=== PATIENT | female | born 1950 | race Hispanic/Latino ===

== ENCOUNTER → 2018-05-24 | Day surgery (SDC) | payer MEDICARE ==
[2018-05-23 12:49] LABS: BASOPHILS % 0.5 % (0.0-1.0); EOSINOPHILS # (AUTO) 0.2 (0.0-0.4); HEMATOCRIT 38.8 % (34.2-44.1); HEMOGLOBIN 13.3 g/dL (12.0-16.0); LYMPHOCYTES # (AUTO) 2.7 (1.0-3.2); LYMPHOCYTES % 31.7 % (18.0-39.1); MEAN CORPUSCULAR HGB CONC 34.3 g/dL (31-35); MEAN CORPUSCULAR VOLUME 99.2 fL (81-99); MONOCYTES # (AUTO) 0.6 (0.2-0.8); MONOCYTES % 7.4 % (4.4-11.3); NEUTROPHILS # (AUTO) 4.9 (2.1-6.9); PLATELET COUNT 291 x10e3/uL (140-360); RED BLOOD COUNT 3.91 x10e6/uL (3.6-5.1); RED CELL DISTRIBUTION WIDTH 12.4 % (11.7-14.4)
--- NOTE | 2018-05-23 13:58 | Diagnostic Imaging Report ---
EXAMINATION: CHEST 2 VIEWS INDICATION: Right shoulder rotator cuff tear. \S\PRE-OP COMPARISON: None FINDINGS: PA and lateral views TUBES and LINES: None. LUNGS: Lungs are well inflated. Trace left basilar atelectasis. There is no evidence of pneumonia or pulmonary edema. PLEURA: No pleural effusion or pneumothorax. HEART AND MEDIASTINUM: The cardiomediastinal silhouette is unremarkable. BONES AND SOFT TISSUES: No acute osseous lesion. Soft tissues are unremarkable. UPPER ABDOMEN: No free air under the diaphragm. IMPRESSION: No acute thoracic abnormality. Signed by: Dr. Timmy Landers M.D. on 05/23/2018 1:54 PM
[~2018-05-24] MED LIST: ASPIR 8181 MG PO; CARISOPRODOL PO; CEFAZOLIN SOD 2 GM/D5W 50ML 50 ML IV ONE; DEXAMETHASONE SOD PHOS INJ 4 MG/ML VIAL ONE; EPINEPHRINE HCL INJ 1 MG/ML AMP IV ONE; EPINEPHRINE HCL INJ 1 MG/ML AMP ONE; FENTANYL CITRATE/PF 100MCG/2 ML INJ ONE; GABAPENTIN300 MG PO; KETOROLAC TROMETHAMINE 30 MG/ML VIAL ONE; LIDOCAINE 2% /EPINEPHRINE 20 ML SDV INJ ONE; LISINOPRIL PO; LORCET 10-6501 EACH; LOVASTATIN PO; METOPROLOL SUCC50 MG PO; MIDAZOLAM HCL 2 MG/2 ML VIAL ONE; MULTIVITAMIN; ONDANSETRON HCL INJ 2 MG/ML VIAL ONE; PROPOFOL IV EMULSION 10 MG/ML 20 ML VIAL ONE; ROCURONIUM BROMIDE 10 MG/ML 5ML VIAL ONE; ROPIVACAINE 0.5% 5 MG/ML 30 ML SDV ONE; SEVOFLURANE INHAL SOLN 250 ML PEN BTL ONE; TRAMADOL HCL100 MG PEG; VITAMIN B-121000 MCG PO; VITAMIN D PO
[2018-05-24 12:20] VITALS: BP 118/77
--- NOTE | 2018-05-25 16:22 | Operative Report ---
DATE OF PROCEDURE: May 24, 2018 [facility]URN OPERATOR: None. PREOPERATIVE DIAGNOSES 1. Right rotator cuff tear. 2. Right acromioclavicular joint arthrosis. POSTOPERATIVE DIAGNOSES 1. Complex right rotator cuff tear. 2. Right acromioclavicular joint arthrosis. OPERATIONS/PROCEDURES PERFORMED 1. Patient underwent right shoulder examination under anesthesia. 2. Right shoulder arthroscopy. 3. Repair of a complex right rotator cuff tear. 4. Right arthroscopic subacromial decompression and acromioplasty. 5. Right arthroscopic distal clavicle resection. ANESTHESIA: General endotracheal intubation anesthesia as well as regional block. IV FLUIDS: As per the anesthesia record. BRIEF DESCRIPTION OF THE PATIENT'S OPERATIVE PROCEDURE: Ms. Marsh was taken to the operating room, placed in supine position on the operating table. Following induction of general anesthesia, as well as endotracheal intubation, the patient's right upper extremity was examined under anesthesia. She was found to have mild stiffness in the shoulder when compared to the nonoperative side. There was no evidence of instability. The patient's upper extremity was prepped and draped in standard surgical fashion. Standard posterolateral and anterior portals were created without difficulty. Examination of the glenohumeral articulation demonstrated no significant evidence of chondromalacia. The biceps was contained within the shoulder joint. There were no loose bodies in the shoulder joint. There was a full-thickness rotator cuff tear overlying the glenohumeral articulation not at the level of the insertion site for the rotator cuff tissue. The scope was placed into the subacromial space and significant bursal inflammation was encountered. A lateral portal was created through an outside-in technique. A shaver was placed in the subacromial space and a bursectomy was performed. Evaluation of the rotator cuff tissue again confirmed tearing of the rotator cuff tissue at the musculotendinous junction overlying the glenohumeral joint anteriorly along the pathway of the biceps tendon. The remaining rotator cuff tissue was severely atrophic and worn. An anterolateral portal was created through an outside-in technique. The patient was found to have a markedly downward sloping acromion both anteriorly and laterally and she also had significant osteophytes that were impacting the rotator cuff tissue at the level of the tear at the AC joint. A shaver was used to provide the patient an acromioplasty at this time. The osteophytes at the level of the AC joint were also resected at this time to allow for attempted repair of the rotator cuff injury. Sutures were then shuttled through the rotator cuff tendon stump and woven through the muscle medially in an attempt to repair the muscle to the tendon. These sutures were tied firmly with the arm slightly abducted from the side of the body and this resulted in realignment of the tendon and muscular fibers. Again, the rotator cuff tissue was found to be atrophic and severely worn both at the level of the injury as well as laterally over the greater tuberosity. Once the rotator cuff was drawn together, evaluation of the tendon found closure of the rotator cuff defect. The shaver was transferred to the anterior portal and a distal clavicle resection was performed removing 1 cm section of the distal clavicle. This was confirmed using the scope. The shoulder was then drained of its normal saline. All portal sites were closed and the patient was provided a shoulder immobilizer, awakened and taken to the postanesthesia care unit in stable condition. Job#: [id number] VAS
== END | disposition home or self-care (01) ==
LOC: OR 06:23
PROVIDERS: ATTEND Specialist
DX: M75.121 Complete rotator cuff tear or rupture of right shoulder, not specified as traumatic (principal); M19.011 Primary osteoarthritis, right shoulder; I10 Essential (primary) hypertension; E78.00 Pure hypercholesterolemia, unspecified; Z01.812 Encounter for preprocedural laboratory examination; Z01.810 Encounter for preprocedural cardiovascular examination; Z01.818 Encounter for other preprocedural examination; Z79.82 Long term (current) use of aspirin; Z68.36 Body mass index [BMI] 36.0-36.9, adult; Z82.61 Family history of arthritis
CPT/HCPCS: 29824; 29826; 29827; 36415; 71046; 85025; 93005; J0171; J1100; J1885; J2001; J2250; J2405; J2795